=== PATIENT | male | born 1990 | race Caucasian/White ===

== ENCOUNTER 2021-03-27 05:17 | Emergency (ER) | payer OTHER ==
[2021-03-27 06:38] LABS: Absolute Lymphocytes (CBC) 1.9 K/uL (0.7-4.9); Basophils % 0.5 % (0-1.3); Hematocrit 37.5 % (39.6-49.0); MPV 6.6 fL (7.6-11.3); RBC Red Blood Cell Count 4.16 M/uL (4.33-5.43)
[2021-03-27 06:40] LABS: Protime INR 1.28
[2021-03-27 06:54] LABS: Urine Blood Negative (Negative); Urine Glucose Negative (Negative); Urine Protein Negative (Negative); Urine Specific Gravity 1.025 (1.005-1.030); Urine pH 5.5 (5.0-7.0)
[2021-03-27 07:04] LABS: ALT/SGPT 34 U/L (12-78); AST/SGOT 41 U/L (15-37); Albumin 4.3 g/dL (3.4-5.0); Alkaline Phosphatase 65 U/L (45-117); BUN Blood Urea Nitrogen 16 mg/dL (7-18); Bicarbonate 24 mmol/L (21-32); Bilirubin Direct 0.2 mg/dL (0-0.2); Bilirubin Total 0.9 mg/dL (0.2-1.0); Glucose Level 87 mg/dL (74-106); Potassium 3.5 mmol/L (3.5-5.1); Protein, Total 7.7 g/dL (6.4-8.2); Sodium Level 137 mmol/L (136-145)
[2021-03-27 07:25] LABS: Barbiturates NEGATIVE (NEGATIVE); Benzodiazepines POSITIVE (NEGATIVE); Cocaine NEGATIVE (NEGATIVE); METHAMPHETAM POSITIVE (NEGATIVE); Methadone NEGATIVE (NEGATIVE); Opiates NEGATIVE (NEGATIVE); Phencyclidine NEGATIVE (NEGATIVE); THC Cannibis POSITIVE (NEGATIVE)
[2021-03-27] MEDS ORDERED: WATER FOR INJ,STERILE 10 ML ONE (14:33)
[2021-03-27] MEDS ORDERED: ZIPRASIDONE MESYLA 20 MG/VIAL IM ONE (14:33)
[2021-03-27] MEDS ORDERED: DIPHENHYDRAMINE 50 MG/ML VIAL ONE (15:05)
[2021-03-27] MEDS ORDERED: LORazepam 2 MG/ML VIAL ONE (15:05)
--- NOTE | 2021-03-27 17:13 | RAD REPORT ---
EXAM DESCRIPTION: RAD -Hand Left 3 View - 03/27/2021 5:05 pm CLINICAL HISTORY: Left hand pain status post injury FINDINGS: No fracture or dislocation is seen.
--- NOTE | 2021-03-27 23:09 | EDPHYS ---
Physician Documentation [facility] Name: Jerrell Zuñiga Age: 30 yrs Sex: Male : 1990 Arrival Date: 03/27/2021 Time: 05:20 Bed 16 Private MD: ED Physician Finn Balbuena HPI: 03/27 06:52 This 30 yrs old Male presents to ER via Law Enforcement with complaints of Psych jmm Problem. 06:52 This is a 30-year-old male with a history of schizophrenia, bipolar, depression the jmm presents emerge department after being detained by the police. Patient states he is having car trouble, and parked at a gas station. He is trying to find his medications and was detained by police due to concerns for intoxication. Patient states that he cut himself and told the police that he want to hurt himself. Patient currently states that he does not want to hurt himself and was just frustrated at the situation. Patient currently states that he takes Latuda, clonazepam, and Vyvanse.. Historical: - Allergies: 05:49 Unable to obtain; bb - Home Meds: 05:49 Unable to obtain [Active]; bb - PMHx: 05:49 Unable to Obtain; bb - PSHx: 05:49 Unable to Obtain; bb - Immunization history:: Client reports receiving the 2nd dose of the Covid vaccine. - Social history:: Smoking status: unknown. ROS: 06:52 Constitutional: Negative for fever, chills, and weight loss, Cardiovascular: Negative jmm for chest pain, palpitations, and edema, Respiratory: Negative for shortness of breath, cough, wheezing, and pleuritic chest pain. 06:52 Psych: Positive for anxiety. 06:52 All other systems are negative. Exam: 06:52 Head/Face: atraumatic. Eyes: EOMI, no conjunctival erythema appreciated ENT: Moist jmm Mucus Membranes Neck: Trachea midline, Supple Chest/axilla: Normal chest wall appearance and motion. Cardiovascular: Regular rate and rhythm. No edema appreciated Respiratory: Normal respirations, no respiratory distress appreciated Abdomen/GI: Non distended, soft Back: Normal ROM 06:52 Constitutional: The patient appears alert, awake, anxious, uncomfortable. 06:52 Skin: Numerous superficial lacerations noted to the forearms bilaterally. 06:52 Neuro: Orientation: is normal, Mentation: is normal, Memory: is normal. 06:52 Psych: Behavior/mood is anxious, aggressive. Vital Signs: 05:30 BP 152 / 81; Pulse 116; Resp 20 S; Temp 98.1(O); Pulse Ox 100% on R/A; Weight 102.06 kg bb (R); Height 6 ft. 0 in. (182.88 cm) (R); 06:25 BP 152 / 81; Pulse 110; Resp 20; Temp 98.1; Pulse Ox 100% ; Weight 102.06 kg; Height 6 wr ft. (182.88 cm); Pain 0/10; 14:26 BP 112 / 95; Pulse 111; Resp 24; Pulse Ox 100% on R/A; ss 15:01 BP 133 / 73; Pulse 94; Resp 18; Temp 98.1; Pulse Ox 98% ; aj2 16:37 BP 131 / 78; Pulse 88; Resp 18; Temp 97.1; Pulse Ox 100% ; aj2 17:26 BP 135 / 77; Pulse 90; Resp 18; Temp 97.1; Pulse Ox 99% ; aj2 18:41 BP 134 / 76; Pulse 72; Resp 18; Temp 97.1; Pulse Ox 99% ; aj2 23:05 BP 130 / 72; Pulse 78; Resp 18; Temp 98.7; Pulse Ox 99% on R/A; [facility] 03/28 00:56 BP 124 / 74; Pulse 70; Resp 18; Temp 98.9(O); Pulse Ox 100% on R/A; [facility] 03/27 06:25 Body Mass Index 30.52 (102.06 kg, 182.88 cm) wr MDM: 03/27 06:26 Patient medically screened. mo 17:26 Data reviewed: vital signs, nurses notes. Counseling: I had a detailed discussion with mo the patient and/or guardian regarding: the historical points, exam findings, and any diagnostic results supporting the discharge/admit diagnosis, lab results, radiology results, the need to transfer to another facility. ED course: . ED course: . ED course: The patient was contacted by [facility]. Appear to be a calm conversation. After the patient hung up the patient immediately began to run out of the room cursing. Saying that he did not want to be transferred. Police were notified and had to forcibly detained him. Geodon 20 mg IM was administered. [facility] did recommend inpatient due to psychosis and suicidal gesture/ideation. Restraints were initially placed but after the patient calmed down, he was very cooperative and currently does not exhibit signs of agitation and follows commands.. 03/27 05:50 Order name: Acetaminophen; Complete Time: 07:03/27 05:50 Order name: Basic Metabolic Panel; Complete Time: 07:03/27 05:50 Order name: CBC with Diff; Complete Time: 06:56 03/27 05:50 Order name: ETOH Level; Complete Time: 07:04 03/27 05:50 Order name: Hepatic Function; Complete Time: 07:03/27 05:50 Order name: PT-INR; Complete Time: 06:56 03/27 05:50 Order name: Ptt, Activated; Complete Time: 06:56 bb 03/27 05:50 Order name: Salicylate; Complete Time: 07:26 03/27 05:50 Order name: Urine Drug Screen; Complete Time: 07: bb 03/27 06:53 Order name: Urine Dipstick-Ancillary; Complete Time: 06:56 EDMS 03/27 16:34 Order name: Hand Left 3 View XRAY; Complete Time: 17:[address] [facility] 03/27 17:48 Order name: SARS-COV-2 RT PCR; Complete Time: 17:53 EDMS 03/27 17:53 Interpretation: Results reviewed. cp 03/27 05:50 Order name: EKG; Complete Time: 05:51 bb 03/27 05:50 Order name: EKG - Nurse/Tech; Complete Time: 05:50 bb 03/27 05:50 Order name: Labs collected and sent; Complete Time: 07:35 bb 03/27 05:50 Order name: Suicide Precautions; Complete Time: 06:20 bb Administered Medications: 14:25 Drug: Geodon (ziprasidone) 20 mg Route: IM; Site: left deltoid; ss 15:14 Follow up: Response: Patient is sedated ss 14:26 CANCELLED (Duplicate Order): Geodon (ziprasidone) 20 mg IM once ss Disposition Summary: 03/27/21 23:08 Transfer Ordered Transfer Location: Psychiatric Facility cp Reason: Higher level of care cp Condition: Stable cp Problem: new cp Symptoms: have improved cp Accepting Physician: DR Goodwin(03/28/21 01:05) kc4 Diagnosis - Suicidal ideations cp Discharge Instructions: - Discharge Summary Sheet mt Forms: - Medication Reconciliation Form cp - SBAR form mt Signatures: Dispatcher [employer] EDShadi Cameron PA PA jmm Ballard, Brenda RN RN bb Florence Rios RN RN ss Venkata Oviedo PA PA cp Chuman, Kourtney kc4 Corrections: (The following items were deleted from the chart) 14:26 14:15 Geodon (ziprasidone) 20 mg IM once ordered. [facility] 16:40 16:34 Wrist Left 3 View+RAD.RAD.BRZ ordered. EDMS EDMS 16:54 15:20 CORONAVIRUS+MR.LAB.BRZ ordered. EDMS EDMS 03/28 00:50 00:42 Forearm Left+RAD.RAD.BRZ ordered. EDMS EDMS 01:05 03/27 23:08 DR Goodwin cp kc4
--- NOTE | 2021-03-27 23:09 | ER ---
Nurse's Notes [facility] Name: Jerrell Zuñiga Age: 30 yrs Sex: Male : 1990 Arrival Date: 03/27/2021 Time: 05:20 Bed 16 Private MD: Diagnosis: Suicidal ideations Presentation: 03/27 05:30 Chief complaint: law enforcement reports that pt was arrested taken to care home and once he bb was in a cell stated he wanted to hurt himself and was trying to cut himself on the bench. Coronavirus screen: At this time, the client does not indicate any symptoms associated with coronavirus-19. Ebola Screen: No symptoms or risks identified at this time. Initial Sepsis Screen: Does the patient meet any 2 criteria? No. Patient's initial sepsis screen is negative. Does the patient have a suspected source of infection? No. Patient's initial sepsis screen is negative. Risk Assessment: Do you want to hurt yourself or someone else? Patient reports desire/thoughts of hurting themselves or someone else. Provider notified. Onset of symptoms was March 27, 2021. 05:30 Method Of Arrival: Law Enforcement: [place] PD bb 05:30 Acuity: STUART 2 bb Triage Assessment: 06:27 General: Appears unkempt, well developed. Pain: Denies pain. wr Historical: - Allergies: 05:49 Unable to obtain; bb - Home Meds: 05:49 Unable to obtain [Active]; bb - PMHx: 05:49 Unable to Obtain; bb - PSHx: 05:49 Unable to Obtain; bb - Immunization history:: Client reports receiving the 2nd dose of the Covid vaccine. - Social history:: Smoking status: unknown. Screenin:04 Abuse screen: Denies,except for police tonight.He was upset because they laugh he said. wr he have some abrasion on his left arm. 12:39 Nutritional screening:. Tuberculosis screening: No symptoms or risk factors identified. aj2 Fall Risk None identified. Assessment: 06:29 Reassessment: Patient brought in by police agitated because he was actively trying to wr harm himself .Said he was in a crisis because he is off his medication .He tried to tried to cut his his wrist with metal table at the care home. He have a history paranoid Schiz,,Major depression,and ,anxiety He denies any drug,or alcohol.. 12:39 Reassessment: Patient appears in no apparent distress at this time. Patient and/or aj2 family updated on plan of care and expected duration. Pain level reassessed. Patient is alert, oriented x 3, equal unlabored respirations, skin warm/dry/pink. 12:41 Reassessment: See paper documentation.. aj2 13:50 Reassessment: [facility] on IPAD at the moment evaluating patient for inpatient vs outpatient treatment. 14:00 Reassessment: Shayy Roche Called. Pt became upset suddenly, running out of the room ss shouting obscenities throughout department. [place] [employer] called to assist. Pt ran through ED and into ED lobby. Pt intercepted by [place] at ED entrance. While attempting to have patient walk back to his room, he slammed his R wrist onto the corner of the wall. Pt is very combative and not cooperating at all with police and/or ED staff. While 3 officers are attempting to restrain patient, he slammed his forehead on nearby wall. No injury noted. Pt has been restrained with the police's wrist cuffs. Pt placed in nearby recliner in hallway and given Geodon at 1412. Back in room at 1432 and placed in 4-point soft restraints. [employer] remains at bedside at 1448. Pt is sedated. Eyes closed. Respirations even and unlabored. PT being monitored at this time. 14:00 Reassessment: Verbally abusive with bizarre behavior. Patient ran through the hallway [facility] and outside the hospital using foul language after speaking with a behavioral therapist via IPOD. Patient post acute care nurse practitioner was present and provided patient with access to the outside behavioral health services. Police called by [facility] staff. Police escorted patient back into the [facility] facility in handcuffs. Medication given as ordered.. 15:01 Reassessment: Patient appears in no apparent distress at this time. Patient and/or aj2 family updated on plan of care and expected duration. Pain level reassessed. Patient is alert, oriented x 3, equal unlabored respirations, skin warm/dry/pink. 15:01 General: Appears in no apparent distress. Behavior is . aj2 16:37 Reassessment: Patient appears in no apparent distress at this time. Patient and/or aj2 family updated on plan of care and expected duration. Pain level reassessed. Patient is alert, oriented x 3, equal unlabored respirations, skin warm/dry/pink. 17:26 Reassessment: Patient appears in no apparent distress at this time. Patient and/or aj2 family updated on plan of care and expected duration. Pain level reassessed. Patient is alert, oriented x 3, equal unlabored respirations, skin warm/dry/pink. Patient asleep.. 18:41 Reassessment: Patient appears in no apparent distress at this time. Patient and/or aj2 family updated on plan of care and expected duration. Pain level reassessed. Patient is alert, oriented x 3, equal unlabored respirations, skin warm/dry/pink. 18:41 General: Appears NAD noted. Asleep, but arousable. . Behavior is. aj2 19:15 Reassessment: Report given to Pam RAYMUNDO) Mental health. aj2 22:40 Reassessment: gave nurse to nurse to Jerri GONZALEZ for [facility]. bb 03/28 00:26 Reassessment: pt awake and A\\T\\Ox 4. pt is aware of his episode earlier in the day. pt kc4 asked " what kind of charges did I have dropped on me from earlier." pt states he does not want to go to a behavioral facility because he's been to 8 and he feels that he is worse when he goes there. pt is calm and cooperative at this time. pt ambulated to rest room and is back in bed resting. pt updated on plan of care and agrees to the plan. 00:38 Reassessment: Patient appears in no apparent distress at this time. Patient and/or kc4 family updated on plan of care and expected duration. Pain level reassessed. Patient is alert, oriented x 3, equal unlabored respirations, skin warm/dry/pink. General: Appears in no apparent distress. Behavior is calm, cooperative. Pain: Denies pain. Neuro: No deficits noted. Cardiovascular: No deficits noted. Respiratory: No deficits noted. GI: No deficits noted. : No deficits noted. EENT: No deficits noted. Psych: 03/27 20:20 [place] Suicide Severity Screening: In the past month, have you wished you were kc4 or wished you could go to sleep and not wake up? Patient responds "yes.". [place] Suicide Severity Screening: "In the past month, have you actually had any thoughts of killing yourself?" Patient responds "yes." "In your lifetime, have you ever done anything, started to do anything, or prepared to do anything to end your life?" Patient responds "no.". Subjective: Having thoughts of suicide. Denies suicidal plan. Objective: Speech is absent. Interventions: Removed personal items and placed in bag. Patient placed in hospital gown. Searched person for dangerous items. Safety Checks: Personal items have been removed. Door is open. No visitors are present at this time. Pt denies substance abuse. Commitment: Patient will be an involuntary commitment. Vital Signs: 05:30 BP 152 / 81; Pulse 116; Resp 20 S; Temp 98.1(O); Pulse Ox 100% on R/A; Weight 102.06 kg bb (R); Height 6 ft. 0 in. (182.88 cm) (R); 06:25 BP 152 / 81; Pulse 110; Resp 20; Temp 98.1; Pulse Ox 100% ; Weight 102.06 kg; Height 6 wr ft. (182.88 cm); Pain 0/10; 14:26 BP 112 / 95; Pulse 111; Resp 24; Pulse Ox 100% on R/A; ss 15:01 BP 133 / 73; Pulse 94; Resp 18; Temp 98.1; Pulse Ox 98% ; aj2 16:37 BP 131 / 78; Pulse 88; Resp 18; Temp 97.1; Pulse Ox 100% ; aj2 17:26 BP 135 / 77; Pulse 90; Resp 18; Temp 97.1; Pulse Ox 99% ; aj2 18:41 BP 134 / 76; Pulse 72; Resp 18; Temp 97.1; Pulse Ox 99% ; aj2 23:05 BP 130 / 72; Pulse 78; Resp 18; Temp 98.7; Pulse Ox 99% on R/A; kc4 03/28 00:56 BP 124 / 74; Pulse 70; Resp 18; Temp 98.9(O); Pulse Ox 100% on R/A; kc4 03/27 06:25 Body Mass Index 30.52 (102.06 kg, 182.88 cm) ED Course: 03/27 05:20 Patient arrived in ED. bb 05:30 Arm band placed on left wrist. Patient placed in an exam room, on a stretcher. EKG bb completed in triage. Results shown to MD. 05:49 Triage completed. bb 05:59 Basic Metabolic Panel Sent. wr 05:59 CBC with Diff Sent. wr 05:59 ETOH Level Sent. wr 05:59 Hepatic Function Sent. wr 05:59 PT-INR Sent. wr 05:59 Ptt, Activated Sent. wr 05:59 Salicylate Sent. wr 06:14 Shadi Balderrama PA is PHCP. [facility] 06:14 Finn Balubena MD is Attending Physician. [facility] 07:31 Minh Wing is Primary Nurse. aj2 08:08 contacted [facility] to request patient evaluation. mt 08:40 [facility] called requesting patient chart be faxed to [phone], completed. mt 08:50 contacted [facility] professor of biological sciences at [phone], no answer. mt 12:39 No apparent distress. Appears to be sleeping. aj2 12:39 Patient has correct armband on for positive identification. aj2 12:39 No provider procedures requiring assistance completed. aj2 13:49 patient speaking with [facility] professor of biological sciences. mt 14:08 [facility] professor of biological sciences recommended in patient. mt 15:01 No apparent distress. Appears to be sleeping. aj2 16:06 faxed patient chart to [facility] to initiate transfer. mt 16:37 Patient did not have IV access during this emergency room visit. aj2 17:05 Hand Left 3 View XRAY In Process Unspecified. EDMS 17:26 No apparent distress. Appears to be sleeping. aj2 17:47 PHCP role handed off by Shadi Balderrama PA cp 17:47 Venkata Oviedo PA is PHCP. cp 18:41 No apparent distress. Resting quietly. Appears to be sleeping. transfer Awaiting: aj2 [facility]. 19:08 nurse to nurse from [facility]. mw2 22:33 Nurse to Nurse from [facility]. mw2 22:42 connected Venkata LAST with Dr. Goodwin from [facility]. [facility] 22:50 adimistrative approval given by Susan Hill/ patient has been accepted to [address]/ Dr. Goodwin accepted the patient in transfer. 23:04 contacted the Supervisor Agricultural Education's Office to have the telephone order clerk Investment Officer sign the Transfer Warrant. [facility] 03/28 00:16 [facility] [place] called He stated "I'm currently in [place] its going to [facility] take me some time to get there but I will be there.". Restraints: 03/27 14:32 Violent/Self Destructive Restraint: Order: obtained. Initiated March 27, 2021 at ss 14:32 Staff present during the Initiation of Restraint: SHALA Henson, RN Edith, technical administrator, April, RN Too, RN Kunal, RN. Family Notification/Education: Unable to provide education: Family not present at time . Observed actions/behavior: destructive, violent, severely aggressive, harming self/others, impaired decision making, unable to follow instructions, verbally abusive, Monitoring: Mental status: agitated/restless, Cognition: poor judgement, Circulation: Within defined parameters (based on Cardiovascular assessment). Skin integrity: Within defined parameters (based on Integumentary assessment) Restraint status: Soft wrist restraint (Right) Started. Soft wrist restraint (Left) Started. Soft ankle restraint (Right) Started. Soft ankle restraint (Left) Started. 16:20 Violent/Self Destructive Restraint: Readiness for Discontinue: Release criteria met. No sv longer exhibiting violent or self destructive behavior. Alt interventions effective. Restraint discontinuation: Discontinued at March 27, 2021 at 16:20 Effective alternative interventions: decrease environmental stimuli, placed near Nurse station, medications evaluated, Shadi LAST at bedside reevaluating pt and pt stated that he would be cooperative.. Administered Medications: 14:25 Drug: Geodon (ziprasidone) 20 mg Route: IM; Site: left deltoid; ss 15:14 Follow up: Response: Patient is sedated ss 14:26 CANCELLED (Duplicate Order): Geodon (ziprasidone) 20 mg IM once ss Outcome: 23:08 ER care complete, transfer ordered by MD. ochoa 03/28 00:56 Condition: stable kc4 01:01 Discharged to pt discharged to officer being transported to Behavioral health facility kc4 01:01 Discharge instructions given to police, Instructed on discharge instructions, the need for transfer, Demonstrated understanding of instructions. 01:05 Patient left the ED. kc4 Signatures: Dispatcher [employer] EDMS Echo Jain RN RN sv Mickail, Joel, PA PA jmm Ballard, Brenda, RN RN bb Smirch, Shelby, RN RN ss Page, Corey, PA PA cp Thompson, Moriah vt Jayde Wiggins mw2 Minh Wing aj2 Allison Gonzales kc4 Mel Swift Corrections: (The following items were deleted from the chart) 03/27 08:09 08:08 contacted [facility] for patient evaluation [facility] 14:52 14:00 Reassessment: Shayy Roche Called. Pt became upset suddenly, running out of the room ss shouting obscenities throughout department. [place] PD called to assist. Pt ran through ED and into ED lobby. Pt intercepted by [place] at ED entrance. While attempting to have patient walk back to his room, he slammed his R wrist onto the corner of the wall. Pt is very combative and not cooperating at all with police and/or ED staff. Pt has been restrained with the police's wrist cuffs. Pt placed in nearby recliner in hallway and given Geodon at 1412. Back in room at 1432 and placed in 4-point soft restraints. 15:14 14:00 Reassessment: Shayy Roche Called. Pt became upset suddenly, running out of the room ss shouting obscenities throughout department. [place] PD called to assist. Pt ran through ED and into ED lobby. Pt intercepted by [place] at ED entrance. While attempting to have patient walk back to his room, he slammed his R wrist onto the corner of the wall. Pt is very combative and not cooperating at all with police and/or ED staff. While 3 officers are attempting to restrain patient, he slammed his forehead on nearby wall. No injury noted. Pt has been restrained with the police's wrist cuffs. Pt placed in nearby recliner in hallway and given Geodon at 1412. Back in room at 1432 and placed in 4-point soft restraints. [employer] remains at bedside at 1448. Pt is sedated. Eyes closed. Respirations even and unlabored. PT being monitored at this time. 16:05 15:44 patient speaking with [facility] professor of biological sciences [facility] 16:06 14:00 [facility] professor of biological sciences recommended in patient mt mt
[2021-03-28 01:30] VITALS: BP 124/74; TEMP 98.9; O2SAT 100
--- NOTE | 2021-03-28 10:44 | EKG ---
Test Date: 2021-03-27 Test Time: 05:41:10 Track Layer: KARIN MEASUREMENT RESULTS: Intervals: Rate: 113 RI: 152 QRSD: 80 QT: 316 QTc: 433 [place]: P: 48 RI: 152 QRS: 18 T: 38 INTERPRETIVE STATEMENTS: Sinus tachycardia Otherwise normal ECG No previous ECG available for comparison Electronically Signed On 03-28-21 10:40:20 CDT by Adán Hassan
== END 2021-03-28 01:05 ==
LOC: ER 05:17
DX: R45.851 Suicidal ideations (principal); F20.9 Schizophrenia, unspecified; Z78.1 Physical restraint status; Z20.822 Contact with and (suspected) exposure to COVID-19
CPT/HCPCS: 93005; 85025; 80048; 36415; 80320; 80329 ×2; 85610; 80076; 85730; 81003; 80307; 73130; 96372; 99284; U0003; J3486; J1200